=== PATIENT | female | born 1955 | race Caucasian/White ===

== ENCOUNTER 2020-10-09 13:40 | Emergency (ER) | payer MEDICARE, OTHER ==
[2020-10-09] MEDS ORDERED: oxyCODONE 5 MG Tab PO ONE (16:29)
[2020-10-09] MEDS ORDERED: Ketorolac 60 MG/2 ML SDV IM ONE (16:29)
--- NOTE | 2020-10-09 16:54 | CR ---
HISTORY: Low back and right hip pain. TECHNIQUE: Frontal view the pelvis and 2 views of the right hip. COMPARISON: None. FINDINGS: No fracture. Mild hip joint space narrowing bilaterally with acetabular osteophyte formation. Degenerative changes of the pubic symphysis and sacroiliac joints. Lower lumbar spine degenerative changes. IMPRESSION: No acute findings. Mild osteoarthritis of both hips. Dictated by Felipe Cowan MD @ 10/09/2020 4:53:[address] Felipe Cowan @ Oct 09 2020 4:53PM
--- NOTE | 2020-10-09 16:54 | CR ---
HISTORY: Low back pain. TECHNIQUE: Lumbar spine 2 views. COMPARISON: None. FINDINGS: Suspect transitional lumbosacral anatomy with lumbarized or partially lumbarized S1. Moderate apex right curvature of the lumbar spine. No subluxation. Vertebral body heights are maintained. Lumbosacral junction is not well visualized on the lateral view. [id number] disc space narrowing throughout the remainder of the lumbar spine. Lumbar facet arthrosis. Lower thoracic spine degenerative changes. IMPRESSION: No acute findings. Multilevel degenerative changes. Dictated by Felipe Cowan MD @ 10/09/2020 4:52:[address] Felipe Cowan @ Oct 09 2020 4:52PM
--- NOTE | 2020-10-09 16:59 | EDM.PDOC ---
ED HPI GENERAL MEDICAL PROBLEM - General Chief Complaint: Back Pain or Injury Stated Complaint: LOWER BACK PAIN Time Seen by Provider: 10/09/20 13:54 Source of Information: Reports: Patient History Limitations: Reports: No Limitations - History of Present Illness INITIAL COMMENTS - FREE TEXT/NARRATIVE: HISTORY AND PHYSICAL: History of present illness: Patient is a 65-year-old female who presents to the ED today with concern of right hip/low back pain she states that started initially 5 days ago but then went away for 2 to 3 days and started again. Patient states initially started as right-sided low back pain but is now radiating around into the right hip. Patient states that she first noticed the discomfort on Saturday when she was working around the house but states that it was starting to improve until the past 1 to 2 days. Patient denies any direct trauma or injury to her back or hip. Patient denies any loss or retention of bowel bladder function or saddle a nesthesia or history of cancer. Patient states she has a history of hypertension but denies any other health history. But denies any other associative symptoms. Patient denies fever, chills, chest pain, shortness of breath, or cough. Denies headache, neck stiff ness, change in vision, syncope, or near syncope. Denies nausea, vomiting, abdominal pain, diarrhea, constipation, or dysuria. Has not noted any blood in urine or stool. Patient has been eating and drinking appropriately. Review of systems: As per history of present illness and below otherwise all systems reviewed and negative. Past medical history: As per history of present illness and as reviewed below otherwise noncontributory. Surgical history: As per history of present illness and as reviewed below otherwise noncontrib utory. Social history: See social history for further information Family history: As per history of present illness and as reviewed below otherwise noncontributory. Physical exam: General: Patient is alert, oriented, and in no acute distress. Patient sitting comfortably on exam table. Vitals stable and reviewed by me. HEENT: Atraumatic, normocephalic, pupils equal and reactive bilaterally, n egative for conjunctival pallor or scleral icterus, mucous membranes moist, TMs normal bilaterally, throat clear, neck supple, nontender, trachea midline. No drooling or trismus noted. No meningeal signs. No hot potato voice noted. Lungs: Clear to auscultation, breath sounds equal bilaterally, chest nontender. Heart: S1S2, regular rate and rhythm without overt murmur Abdomen: Soft, nondistended, nontender. Negative for masses or hepatosplenomegaly. Negative for costovertebral tenderness. Pelvis: Stable nontender. Genitourinary: Deferred. Rectal: Deferred. Skin: Intact, warm, dry. No lesions or rashes noted. Extremities: No obvious deformity of the complete spine. No step-offs, crepitus, or point tenderness to palpation of the complete spine. Patient does have pain to palpation over the right sided paraspinous muscle/SI joint and generalized pain into the right hip. Patient has full range of motion of all extremities without deficit but does have some pain with range of motion of the right hip. Patient has limited range of motion of the lumbar spine due to pain but full range of motion of the thoracic and cervical spine without difficulty. Patient was able to ambulate on exam but does have pain with ambulation. Straight leg raise intact bilaterally. Heel/toe gait intact. Patellar reflexes intact bilaterally. Otherwise, atraumatic, negative for cords or calf pain. Neurovascular unremarkable. Neuro: Awake, alert, oriented. Cranial nerves II through XII unremarkable. Cerebellum unremarkable. Motor and sensory unremarkable throughout. Exam nonfocal. Notes: On initial exam, patient is vitally stable, nontoxic, and in no acute distress. She does have pain of her lumbar spine with range of motion without obvious deformity of the spine as well as pain over palpation of the SI joint and right sided paraspinous muscle that radiates into the right hip. Will obtain x-ray imaging of the lumbar spine as well as the right hip/pelvis. Will also obtain a urinalysis for concern of possible atypical presentation for infection. Lumbar pelvic and hip x-ray show no acute findings with multilevel degenerative changes and mild osteoarthritis of both hips. All incidental findings today of imaging discussed with patient. Upon reexamination of patient, she remains comfortable and vitally stable throughout stay in ED and has improvement of her symptoms with therapeutics given today in the emergency room. Signs and symptoms that were prompt return to the ED thoroughly discussed with patient. Discussed importance for follow-up with a primary care provider. Voices understanding and is agreeable to plan of care. Denies any further questions or concerns at this time. Diagnostics: Lumbar,Pelvis,Rt hip XR, UA Therapeutics: Toradol, Oxycodone 5mg PO Prescription: Diclofenac, Lidocaine Patch, Flexeril Impression: Low back pain Right hip pain Plan: 1. The medication you received today does cause drowsiness, so do not drive for the remaining day. 2. When resting please lay on a flat firm surface. Limit your mobility to prevent muscle stiffness. Get up to ambulate/move around/gentle stretching multiple times throughout the day. May alternate heat and ice to painful areas. 3. Tylenol as needed for back pain. Otherwise, take the prescribed Flexeril and diclofenac as directed. Diclofenac as an anti-inflammatory medication so do not take any additional NSAIDs with this medication, such as naproxen, ibuprofen, or Aleve. Flexeril, this medication may cause drowsiness, so do not take it while driving or needing to be functioning outside of the home. 4. Follow-up with your primary care provider as discussed. Return to the ED as needed and as discussed. Definitive disposition and diagnosis as appropriate pending reevaluation and review of above. right back Pain Score (Numeric/FACES): 9 - Related Data Allergies Allergy/AdvReac Type Severity Reaction Status Date / Time No Known Allergies Allergy Verified 10/09/20 14:19 Home Meds: Home Meds Aspirin [Halfprin] 1 tab PO DAILY 09/01/14 [History] Ferrous Sulfate [Iron] 325 mg PO DAILY 09/01/14 [History] Calcium Carbonate [Calcium] 2 tab PO DAILY 07/20/16 [History] Fenofibric Acid (Choline) [Fenofibric Acid] 135 mg PO DAILY 07/20/16 [History] Krill/Om-3/DHA/EPA/Phospho/Ast [Union-3 Krill Oil 1,000 mg] 2 tab PO DAILY 07/20/16 [History] Losartan Potassium 100 mg PO DAILY 07/20/16 [History] Magnesium 250 mg PO DAILY 07/20/16 [History] Venlafaxine HCl [Venlafaxine HCl ER] 75 mg PO DAILY 07/20/16 [History] Vitamin B Complex 1 tab PO DAILY 07/20/16 [History] amLODIPine [Norvasc] 5 mg PO DAILY 07/20/16 [History] Cyclobenzaprine [Flexeril] 10 mg PO TID PRN #9 tab 10/09/20 [Rx] Diclofenac Sodium [Voltaren] 75 mg PO BIDMEALS PRN #15 tab.cr 10/09/20 [Rx] Past Medical History HEENT History: Reports: Other (See Below) Other HEENT History: wears glasses Cardiovascular History: Reports: Hypertension, Other (See Below) Gastrointestinal History: Reports: Colon Polyp, Other (See Below) Genitourinary History: Reports: None 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: Psychiatric History: Reports: Anxiety, Depression Endocrine/Metabolic History: Reports: Obesity/BMI 30+, Other (See Below) Hematologic History: Reports: Anemia, Blood Transfusion(s) - Infectious Disease History Infectious Disease History: Reports: Chicken Pox, Measles, Mumps, Rubella - Past Surgical History Head Surgeries/Procedures: Reports: None GI Surgical History: Reports: Colonoscopy Female Surgical History: Reports: Hysterectomy Oncologic Surgical History: Reports: Biopsy of Breast ED ROS GENERAL - Review of Systems Review Of Systems: Comprehensive ROS is negative, except as noted in HPI. ED EXAM, GENERAL - Physical Exam Exam: See Below (see dictation) Course - Vital Signs Last Recorded V/S: Last Vital Signs Temp 98 F 10/09/20 17:50 Pulse 90 10/09/20 17:50 Resp 18 10/09/20 17:50 BP 118/62 10/09/20 17:50 Pulse Ox 98 10/09/20 17:50 - Orders/Labs/Meds Labs: Laboratory Tests 10/09/20 Range/Units 16:09 Urine Color YELLOW Urine Appearance CLEAR Urine pH 8.0 (5.0-8.0) Ur Specific [place] 1.020 (1.001-1.035) Urine Protein NEGATIVE (NEGATIVE) mg/dL Urine Glucose (UA) NEGATIVE (NEGATIVE) mg/dL Urine Ketones NEGATIVE (NEGATIVE) mg/dL Urine Occult Blood NEGATIVE (NEGATIVE) Urine Nitrite NEGATIVE (NEGATIVE) Urine Bilirubin NEGATIVE (NEGATIVE) Urine Urobilinogen 1.0 (<2.0) EU/dL Ur Leukocyte Esterase NEGATIVE (NEGATIVE) Meds: Medications Discontinued Medications Generic Name Dose Route Start Last Admin Trade Name Freq PRN Reason Stop Dose Admin Ketorolac Tromethamine 60 mg 10/09/20 16:29 10/09/20 17:04 Ketorolac 60 Mg/2 Ml Sdv IM 10/09/20 16:30 60 mg ONETIME ONE Administration Oxycodone HCl 5 mg 10/09/20 16:29 10/09/20 17:04 Oxycodone 5 Mg Tab PO 10/09/20 16:30 5 mg ONETIME ONE Administration Departure - Departure Time of Disposition: 22:03 Disposition: Home, Self-Care 01 Clinical Impression: Right hip pain Low back pain Qualifiers: Chronicity: acute Back pain laterality: bilateral Sciatica presence: with sciatica Sciatica laterality: sciatica of right side Qualified Code(s): M54.41 - Lumbago with sciatica, right side - Discharge Information Prescriptions: Cyclobenzaprine [Flexeril] 10 mg PO TID PRN #9 tab PRN Reason: Spasms Diclofenac Sodium [Voltaren] 75 mg PO BIDMEALS PRN #15 tab.cr PRN Reason: Pain Instructions: Chronic Back Pain, [id number], Joint Pain, [id number] Referrals: PCP,None [Primary Care Provider] - Forms: ED Department Discharge Additional Instructions: The following information is given to patients seen in the emergency department who are being discharged to home. This information is to outline your options for follow-up care. We provide all patients seen in our emergency department with a follow-up referral. The need for follow-up, as well as the timing and circumstances, are variable depending upon the specifics of your emergency department visit. If you don't have a primary care physician on staff, we will provide you with a referral. We always advise you to contact your personal physician following an emergency department visit to inform them of the circumstance of the visit and for follow-up with them and/or the need for any referrals to a consulting specialist. The emergency department will also refer you to a specialist when appropriate. This referral assures that you have the opportunity for follow-up care with a specialist. All of these measure are taken in an effort to provide you with optimal care, which includes your follow-up. Under all circumstances we always encourage you to contact your private physician who remains a resource for coordinating your care. When calling for follow-up care, please make the office aware that this follow-up is from your recent emergency room visit. If for any reason you are refused follow-up, please contact the [facility] Emergency Department at and asked to speak to the emergency department charge nurse. [facility] [address] [place] [address] [facility] [address] [place] [address] 1. The medication you received today does cause drowsiness, so do not drive for the remaining day. 2. When resting please lay on a flat firm surface. Limit your mobility to prevent muscle stiffness. Get up to ambulate/move around/gentle stretching multiple times throughout the day. May alternate heat and ice to painful areas. 3. Tylenol as needed for back pain. Otherwise, take the prescribed Flexeril and diclofenac as directed. Diclofenac as an anti-inflammatory medication so do not take any additional NSAIDs with this medication, such as naproxen, ibuprofen, or Aleve. Flexeril, this medication may cause drowsiness, so do not take it while driving or needing to be functioning outside of the home. 4. Follow-up with your primary care provider as discussed. Return to the ED as needed and as discussed. Sepsis Event Note (ED) - Evaluation Sepsis Screening Result: No Definite Risk - Focused Exam Vital Signs: Vital Signs Temp Pulse Resp BP Pulse Ox 10/09/20 17:50 98 F 90 18 118/62 98 10/09/20 14:20 97 F 91 18 113/62 97
[2020-10-09 17:52] VITALS: BP 118/62; PULSE 90
== END 2020-10-09 17:52 | disposition home or self-care (01) ==
LOC: MW.ED 13:40
DX: M54.41 Lumbago with sciatica, right side (principal); M54.42 Lumbago with sciatica, left side; M25.551 Pain in right hip; I10 Essential (primary) hypertension; E66.9 Obesity, unspecified; Z68.36 Body mass index [BMI] 36.0-36.9, adult; Z79.82 Long term (current) use of aspirin; Z79.899 Other long term (current) drug therapy
CPT/HCPCS: 72100; 73502; 81003; 96372; 99283; A9270; J1885